=== PATIENT | female | born 1945 | race Caucasian/White ===

== ENCOUNTER 2017-03-03 14:38 | Inpatient (IN) | payer OTHER ==
[~2017-03-03] VITALS: Ht 160 cm; Wt 65.3 kg
[~2017-03-03 14:38] MED LIST: CATAPRES0.1 MG PO; CATAPRES0.2 MG PO; LOPRESSOR50 MG PO; LORTAB 10/500 T1 TAB PO; LYRICA25 MG PO; METOPROLOL TART25 MG PO; SYNTHROID100 MCG PO
[2017-03-03 15:03] LABS: BASOPHIL COUNT 0.1 K/uL (0-0.1); EOSINOPHIL COUNT 0.4 K/uL (0-0.3); HEMATOCRIT 42.6 % (36.0-46.0); IMMATURE GRANULOCYTE (%) 0.2 % (0.0-0.7); INSTRUMENT ABS NEUTROPHIL CT 5.4 K/uL; LYMPHOCYTE COUNT 2.1 K/uL (1.0-2.8); MCH 31.9 PG (29.0-34.0); MCHC 32.9 G/DL (30.0-36.0); MEAN PLAT.VOLUME 9.7 uM^3 (9.5-12.4); MONOCYTE (%) 8.4 % (3-12); MONOCYTE COUNT 0.7 K/uL (0-0.8); NEUTROPHIL (%) 61.4 % (45-76); NEUTROPHIL COUNT 5.4 K/uL (1.8-6.4); PLATELET COUNT 198 K/uL (156-360); RBC DIS.WIDTH-SD 46.7 % (39-53); RED BLOOD COUNT 4.39 M/uL (3.80-5.20); WHITE BLOOD COUNT 8.8 K/uL (4.1-10.2)
[2017-03-03 15:13] LABS: CHLORIDE 103 mEq/L (99-109); POTASSIUM 4.1 mEq/L (3.7-5.4); SODIUM 139 mEq/L (136-147)
[2017-03-03 15:15] LABS: GLUCOSE 108 mg/dL (70-99)
[2017-03-03 15:17] LABS: ANION GAP 10 MEQ/L (2-14); TOTAL BILIRUBIN 0.4 mg/dL (0.0-1.0)
[2017-03-03 15:19] LABS: ALKALINE PHOSPHATASE 88 IU/L (3-129); GFR ESTIMATE (CALCULATED) 47 mL/min/
[2017-03-03 15:20] LABS: UREA NITROGEN (BUN) 17 mg/dL (9-23)
[2017-03-03 15:23] LABS: LIPASE 12 U/L (1.0-51.0)
[2017-03-03 15:24] LABS: TROP-I INTERPRETATION NEGATIVE; TROPONIN-I < 0.01 ng/mL (0.0-0.30)
[2017-03-03 20:29] LABS: ADD MIUA? YES; BILIRUBIN NEGATIVE; BLOOD MODERATE; COLOR YELLOW ((YELLOW)); GLUCOSE (STRIP) NEGATIVE; KETONES NEGATIVE; LEUKOCYTES NEGATIVE; NITRITE POSITIVE; PROTEIN (STRIP) NEGATIVE; SPECIFIC GRAVITY 1.025 (1.000-1.030); UROBILINOGEN 0.2 MG/DL (0.2-1.0)
[2017-03-03 20:36] LABS: BACTERIA RARE /HPF; EPITHELIAL CELLS RARE /HPF; HYALINE CASTS 0-5 /LPF; MUCUS TRACE /LPF; UCUL ADDED? NO; WHITE BLOOD CELLS 0-5 /HPF (0-5)
[2017-03-03] MEDS ORDERED: LORTAB 10-3251 EACH PO (21:30)
[2017-03-03] MEDS ORDERED: FENTANYL1 EAC5 TD (21:31)
[2017-03-03] MEDS ORDERED: ALPRAZOLAM0.5 MG PO (21:32)
[2017-03-03] MEDS ORDERED: LYRICA150 MG PO (21:33)
[2017-03-03] MEDS ORDERED: ASPIRIN EC325 MG PO (21:33)
[2017-03-03 23:26] VITALS: BP 178/86
[2017-03-04 06:48] VITALS: BP 189/81
[2017-03-04 15:34] VITALS: BP 191/86
[2017-03-04 22:24] VITALS: BP 180/75
== END 2017-03-04 22:36 | disposition left against medical advice (07) | DRG 390 ==
LOC: EME 14:38 → EDOF 21:28 → 5EAST 23:10
PROVIDERS: Emergency Medicine
DX: K56.60 Unspecified intestinal obstruction (principal); R11.0 Nausea; I10 Essential (primary) hypertension; J45.909 Unspecified asthma, uncomplicated; E03.9 Hypothyroidism, unspecified; F17.200 Nicotine dependence, unspecified, uncomplicated; G89.29 Other chronic pain; M54.5 Low back pain; K21.9 Gastro-esophageal reflux disease without esophagitis; F41.9 Anxiety disorder, unspecified; R00.1 Bradycardia, unspecified; I87.8 Other specified disorders of veins; I35.0 Nonrheumatic aortic (valve) stenosis; I16.0 Hypertensive urgency; Z66 Do not resuscitate; R51 Headache; K59.00 Constipation, unspecified; Z88.6 Allergy status to analgesic agent; Z91.048 Other nonmedicinal substance allergy status; Z79.82 Long term (current) use of aspirin
CPT/HCPCS: 74177; 74241; 76700; 80053; 81003; 83690; 84443; 84484; 85025; 93005; 99281; 99285; J0360; J1170; J1650; J2060; J2270; J2405; J3010

== ENCOUNTER 2017-11-05 10:44 | Observation (INO) | payer OTHER ==
[~2017-11-05] VITALS: Ht 157.5 cm; Wt 65.0 kg
[2017-11-05] VITALS (10 sets, daily range): BP systolic 176–214; BP diastolic 84–100
[~2017-11-05 10:44] MED LIST changes: +ALPRAZOLAM0.5 MG PO; +ASPIRIN EC325 MG PO; +FENTANYL1 EAC5 TD; +LORTAB 10-3251 EACH PO; +LYRICA150 MG PO
[2017-11-05 11:46] LABS: HEMATOCRIT 42.4 % (36.0-46.0); HEMOGLOBIN 14.2 G/DL (11.9-15.5); MCH 32.3 PG (29.0-34.0); MCHC 33.5 G/DL (30.0-36.0); MCV 96.6 FL (83-99); PLATELET COUNT 210 K/uL (156-360); RBC DIS.WIDTH-CV 12.9 % (11.8-14.6); RBC DIS.WIDTH-SD 45.9 % (39-53); RED BLOOD COUNT 4.39 M/uL (3.80-5.20); WHITE BLOOD COUNT 8.4 K/uL (4.1-10.2)
[2017-11-05 11:58] LABS: CHLORIDE 104 mEq/L (99-109); POTASSIUM 4.4 mEq/L (3.7-5.4); SODIUM 141 mEq/L (136-147)
[2017-11-05 12:00] LABS: GLUCOSE 119 mg/dL (70-99)
[2017-11-05 12:04] LABS: GFR ESTIMATE (CALCULATED) 58 mL/min/
[2017-11-05 12:05] LABS: UREA NITROGEN (BUN) 16 mg/dL (9-23)
[2017-11-05 12:08] LABS: TROP-I INTERPRETATION NEGATIVE; TROPONIN-I < 0.01 ng/mL (0.0-0.30)
[2017-11-05 18:56] LABS: TROP-I INTERPRETATION NEGATIVE; TROPONIN-I < 0.01 ng/mL (0.0-0.30)
[2017-11-06] VITALS (7 sets, daily range): BP systolic 143–212; BP diastolic 66–102
[2017-11-06 01:14] LABS: TROP-I INTERPRETATION NEGATIVE; TROPONIN-I < 0.01 ng/mL (0.0-0.30)
[2017-11-06 05:59] LABS: TROP-I INTERPRETATION NEGATIVE; TROPONIN-I < 0.01 ng/mL (0.0-0.30)
[2017-11-06] MEDS ORDERED: AMLODIPINE BESY10 MG PO (10:52)
[2017-11-06] MEDS ORDERED: CARVEDILOL12.5 MG PO (10:52)
[2017-11-06] MEDS ORDERED: LOSARTAN POTAS100 MG PO (10:52)
[2017-11-06] MEDS ORDERED: APRESOLINE50 MG PO (10:52)
[2017-11-06] MEDS ORDERED: NICOTINE PATCH1 EAC2 TD (10:52)
[2017-11-07] MEDS ORDERED: NORVASC10 MG PO (17:36)
[2017-11-07] MEDS ORDERED: VITAMIN D5000 UNI1 PO (17:37)
[2017-11-07] MEDS ORDERED: VITAMIN B122500 MCG PO (17:37)
== END 2017-11-06 12:00 | disposition home or self-care (01) ==
LOC: EME 10:44 → 5WEST 12:29 → EDOF 12:29 → ENRESERV 12:29 → 5WEST 14:31
PROVIDERS: Emergency Medicine; Internal Medicine; Physician Assistant Medical
DX: I16.0 Hypertensive urgency (principal); I10 Essential (primary) hypertension; E03.9 Hypothyroidism, unspecified; F17.200 Nicotine dependence, unspecified, uncomplicated; R07.9 Chest pain, unspecified; R94.31 Abnormal electrocardiogram [ECG] [EKG]; R00.1 Bradycardia, unspecified; M79.622 Pain in left upper arm; R51 Headache; R00.0 Tachycardia, unspecified; I67.1 Cerebral aneurysm, nonruptured; Z98.890 Other specified postprocedural states; G89.4 Chronic pain syndrome; Z79.891 Long term (current) use of opiate analgesic; M54.9 Dorsalgia, unspecified; J45.909 Unspecified asthma, uncomplicated; K21.9 Gastro-esophageal reflux disease without esophagitis; I35.0 Nonrheumatic aortic (valve) stenosis; Z85.820 Personal history of malignant melanoma of skin; Z79.82 Long term (current) use of aspirin; Z88.6 Allergy status to analgesic agent
CPT/HCPCS: 70450; 71020; 80048; 83880; 84443; 84484; 85027; 93005; 99202; 99281; 99285; G0378; J0360; J1200; J1650; J1885; J2060; J2405; J2765; J7050

== ENCOUNTER 2017-11-07 11:37 | Inpatient (IN) | payer OTHER ==
[~2017-11-07] VITALS: Ht 160 cm; Wt 64.2 kg
[~2017-11-07 11:37] MED LIST changes: +AMLODIPINE BESY10 MG PO; +APRESOLINE50 MG PO; +CARVEDILOL12.5 MG PO; +LOSARTAN POTAS100 MG PO; +NICOTINE PATCH1 EAC2 TD
[2017-11-07 12:53] LABS: HEMATOCRIT 43.2 % (36.0-46.0); HEMOGLOBIN 14.3 G/DL (11.9-15.5); MCH 32.6 PG (29.0-34.0); MCHC 33.1 G/DL (30.0-36.0); MCV 98.4 FL (83-99); PLATELET COUNT 224 K/uL (156-360); RBC DIS.WIDTH-CV 13.3 % (11.8-14.6); RBC DIS.WIDTH-SD 48.6 % (39-53); RED BLOOD COUNT 4.39 M/uL (3.80-5.20); WHITE BLOOD COUNT 16.3 K/uL (4.1-10.2)
[2017-11-07 13:05] LABS: CHLORIDE 100 mEq/L (99-109); POTASSIUM 4.1 mEq/L (3.7-5.4); SODIUM 136 mEq/L (136-147)
[2017-11-07 13:07] LABS: GLUCOSE 112 mg/dL (70-99)
[2017-11-07 13:10] LABS: GFR ESTIMATE (CALCULATED) 15 mL/min/
[2017-11-07 13:12] LABS: CREATININE 3.2 mg/dL (0.6-1.3); UREA NITROGEN (BUN) 35 mg/dL (9-23)
[2017-11-07 16:53] LABS: APPEARANCE CLOUDY ((CLEAR)); BILIRUBIN NEGATIVE; BLOOD NEGATIVE; COLOR YELLOW ((YELLOW)); GLUCOSE (STRIP) NEGATIVE; KETONES 5; LEUKOCYTES SMALL; NITRITE POSITIVE; PROTEIN (STRIP) 30; SPECIFIC GRAVITY 1.017 (1.000-1.030); UROBILINOGEN 0.2 MG/DL (0.2-1.0)
[2017-11-07 17:10] LABS: BACTERIA 2+ /HPF; EPITHELIAL CELLS 1+ /HPF; HYALINE CASTS 0-5 /LPF; MUCUS NONE SEEN /LPF; RED BLOOD CELLS 0-5 /HPF (0-5); UCUL ADDED? YES
[2017-11-07 17:11] LABS: CALCIUM OXALATE CRYSTALS RARE /HPF
[2017-11-07] MEDS ORDERED: NORVASC10 MG PO (17:36)
[2017-11-07] MEDS ORDERED: VITAMIN D5000 UNI1 PO (17:37)
[2017-11-07] MEDS ORDERED: VITAMIN B122500 MCG PO (17:37)
[2017-11-07 21:30] VITALS: BP 181/96
[2017-11-07 21:36] LABS: ALBUMIN 3.6 g/dL (3.2-4.8); CHLORIDE 102 mEq/L (99-109); POTASSIUM 3.9 mEq/L (3.7-5.4); SODIUM 133 mEq/L (136-147)
[2017-11-07 21:38] LABS: GLUCOSE 126 mg/dL (70-99)
[2017-11-07 21:39] LABS: TOTAL PROTEIN 6.8 g/dL (6.4-8.3)
[2017-11-07 21:40] LABS: TOTAL BILIRUBIN 0.4 mg/dL (0.0-1.0)
[2017-11-07 21:42] LABS: ALKALINE PHOSPHATASE 83 IU/L (3-129); GFR ESTIMATE (CALCULATED) 22 mL/min/
[2017-11-07 21:43] LABS: UREA NITROGEN (BUN) 33 mg/dL (9-23)
[2017-11-07 21:44] LABS: AST (GOT) 16 IU/L (2-34)
[2017-11-07 21:45] LABS: ALT (GPT) 7 IU/L (3-49); CREATININE 2.3 mg/dL (0.6-1.3)
[2017-11-08] VITALS (11 sets, daily range): BP systolic 143–225; BP diastolic 65–107
[2017-11-08 05:57] LABS: HEMATOCRIT 40.5 % (36.0-46.0); HEMOGLOBIN 13.4 G/DL (11.9-15.5); MCH 32.5 PG (29.0-34.0); MCHC 33.1 G/DL (30.0-36.0); MCV 98.3 FL (83-99); PLATELET COUNT 160 K/uL (156-360); RBC DIS.WIDTH-CV 13.2 % (11.8-14.6); RED BLOOD COUNT 4.12 M/uL (3.80-5.20); WHITE BLOOD COUNT 9.1 K/uL (4.1-10.2)
[2017-11-08 06:17] LABS: INTER. NORMALIZED RATIO 0.9
[2017-11-08 06:19] LABS: PTT 28.5 SEC (25-37)
[2017-11-08 06:30] LABS: CHLORIDE 104 MEQ/L (99-109); GFR ESTIMATE (CALCULATED) 29 mL/min/; GLUCOSE 115 mg/dL (70-99); POTASSIUM 3.8 MEQ/L (3.7-5.4); SODIUM 136 MEQ/L (136-147); UREA NITROGEN (BUN) 28 mg/dL (9-23)
[2017-11-08 06:35] LABS: CREATININE 1.8 MG/DL (0.6-1.3)
[2017-11-09 00:07] VITALS: BP 187/84
[2017-11-09 03:28] VITALS: BP 203/92
[2017-11-09 06:02] LABS: CHLORIDE 100 MEQ/L (99-109); GFR ESTIMATE (CALCULATED) > 59 mL/min/; GLUCOSE 121 mg/dL (70-99); POTASSIUM 3.9 MEQ/L (3.7-5.4); SODIUM 136 MEQ/L (136-147); UREA NITROGEN (BUN) 15 mg/dL (9-23)
[2017-11-09 06:03] LABS: CREATININE 0.9 MG/DL (0.6-1.3)
[2017-11-09 06:04] VITALS: BP 176/68
[2017-11-09 08:00] VITALS: BP 154/74
[2017-11-09 12:00] VITALS: BP 144/72
[2017-11-09 15:47] VITALS: BP 152/73
[2017-11-09] MEDS ORDERED: NICOTINE PATCH1 EAC2 TD (17:06)
[2017-11-09] MEDS ORDERED: DIVALPROEX SOD500 M1 PO (17:06)
[2017-11-09] MEDS ORDERED: LOSARTAN POTASS50 MG PO (17:06)
[2017-11-09] MEDS ORDERED: CLONIDINE HCL0.3 MG PO (17:06)
[2017-11-09] MEDS ORDERED: SUMATRIPTAN SU100 MG PO (17:08)
[2017-11-09] MEDS ORDERED: KEFLEX500 MG PO (17:11)
== END 2017-11-09 18:30 | disposition home or self-care (01) | DRG 683 ==
LOC: EME 11:37 → 5EAST 18:05 → EDOF 18:05 → ENRESERV 18:07 → 5EAST 21:30 → ENRESERV 11-08 15:58 → 4EAST 11-08 17:23
PROVIDERS: Emergency Medicine; Hospitalist; Internal Medicine
DX: N17.9 Acute kidney failure, unspecified (principal); F11.20 Opioid dependence, uncomplicated; N39.0 Urinary tract infection, site not specified; I16.0 Hypertensive urgency; G89.29 Other chronic pain; E03.9 Hypothyroidism, unspecified; F17.210 Nicotine dependence, cigarettes, uncomplicated; E86.0 Dehydration; G43.909 Migraine, unspecified, not intractable, without status migrainosus; I10 Essential (primary) hypertension; B96.20 Unspecified Escherichia coli [E. coli] as the cause of diseases classified elsewhere; I35.0 Nonrheumatic aortic (valve) stenosis; K21.9 Gastro-esophageal reflux disease without esophagitis; H53.149 Visual discomfort, unspecified; K57.30 Diverticulosis of large intestine without perforation or abscess without bleeding; R73.03 Prediabetes; E53.8 Deficiency of other specified B group vitamins; E55.9 Vitamin D deficiency, unspecified; I95.9 Hypotension, unspecified; Z88.2 Allergy status to sulfonamides; Z88.6 Allergy status to analgesic agent
CPT/HCPCS: 70450; 71020; 71046; 74176; 76770; 80048; 80048 91; 80053; 81003; 83605; 83880; 84443; 84484; 85027; 85610; 85730; 87040; 87077; 87086; 87186; 93005; 93975; 99202; 99281; 99285; G0378; J0360; J0696; J1170; J1200; J1644; J1650; J1885; J2060; J2405; J2765; J7030; J7050; Q0164